=== PATIENT | male | born 1950 | race Caucasian/White ===

== ENCOUNTER 2017-12-09 05:50 | Day surgery (SDC) | payer MEDICARE, BC ==
[~2017-12-09] VITALS: Ht 185.4 cm; Wt 88.9 kg
[~2017-12-09 05:50] MED LIST: ASPI-496 PO; CHOL5000 PO; CYAN50003 PO; Cognium PO; DIME50TA25 PO; FLUT15.815 NAS; GLUC1CAP18 PO; METH500C3 PO; NAPR220C2 PO; OXYM15SP8 NAS; SAW450CA7 PO; TAMS-11 PO; UBID100C41 PO; VALA500T PO; VITA150T PO; Vitamin B INJ
[2017-12-09] MEDS ORDERED: LACTATED RINGERS 1,000 ML IV SCH (06:10)
[2017-12-09 06:27] VITALS: BP 146/94
[2017-12-09] MEDS ORDERED: EPINEPHRINE 1 MG/ML, 1ML ONE (06:55)
[2017-12-09] MEDS ORDERED: OXYMETAZOLINE NASAL SPRAY 0.05%, 15ML ONE (06:55)
[2017-12-09] MEDS ORDERED: MUPIROCIN OINT 2%, 22GM ONE (06:55)
[2017-12-09] MEDS ORDERED: LIDOCAINE 1%, 20ML ONE (06:55)
[2017-12-09] MEDS ORDERED: COCAINE TOPICAL SOLN 4%, 4ML ONE (06:55)
[2017-12-09] MEDS ORDERED: MIDAZOLAM 1 MG/ML, 2ML ONE (07:01)
[2017-12-09] MEDS ORDERED: FENTANYL PF 250 MCG/5ML ONE (07:01)
[2017-12-09] MEDS ORDERED: CEFAZOLIN 1,000 MG ONE (08:24)
[2017-12-09] MEDS ORDERED: NEOSTIGMINE 1 MG/ML, 10ML ONE (08:24)
[2017-12-09] MEDS ORDERED: ROCURONIUM 10 MG/ML,10ML ONE (08:24)
[2017-12-09] MEDS ORDERED: GLYCOPYRROLATE 0.2MG/1ML, 5ML ONE (08:24)
[2017-12-09] MEDS ORDERED: DEXAMETHASONE 4 MG/ML, 1ML ONE (08:24)
[2017-12-09] MEDS ORDERED: ONDANSETRON 2MG/ML, 2ML ONE (08:24)
[2017-12-09] MEDS ORDERED: PROPOFOL 10 MG/ML, 20ML ONE (08:24)
[2017-12-09] MEDS ORDERED: SUCCINYLCHOLINE 20 MG/ML, 10ML ONE (08:24)
[2017-12-09] MEDS ORDERED: hydrALAzine 20 MG/ML, 1ML IV PRN (08:30)
[2017-12-09] MEDS ORDERED: MEPERIDINE/PF 25MG/0.5ML IVPush PRN (08:30)
[2017-12-09] MEDS ORDERED: ACETAMINOPHEN 325 MG TABLET PO PRN (08:30)
[2017-12-09] MEDS ORDERED: LABETALOL 5MG/ML, 20ML IV PRN (08:30)
[2017-12-09] MEDS ORDERED: MIDAZOLAM 1 MG/ML, 2ML IV PRN (08:30)
[2017-12-09] MEDS ORDERED: DIAZEPAM 5 MG/ML, 2ML IVPush PRN (08:30)
[2017-12-09] MEDS ORDERED: HYDROcodone/APAP 7.5-325MG/15ML UDC PO PRN (08:30)
[2017-12-09] MEDS ORDERED: HYDROmorphone 1 MG/ML, 1ML IV PRN (08:30)
[2017-12-09] MEDS ORDERED: OXYcodone 5 MG/5 ML ORAL.SOL UDC PO PRN (08:30)
[2017-12-09] MEDS ORDERED: ONDANSETRON 2MG/ML, 2ML IVPush PRN (08:30)
[2017-12-09] MEDS ORDERED: METOPROLOL 1 MG/ML, 5ML IV PRN (08:30)
[2017-12-09] MEDS ORDERED: EPHEDRINE 50 MG/ML, 1ML IVPush PRN (08:30)
[2017-12-09] MEDS ORDERED: ALBUTEROL SULFATE 2.5 MG/3 ML NPPB PRN (08:30)
[2017-12-09] MEDS ORDERED: PROMETHAZINE 25 MG/ML, 1ML IV PRN (08:30)
[2017-12-09] MEDS ORDERED: OXYcodone 5 MG/5 ML ORAL.SOL UDC ONE (09:04)
[2017-12-09] MEDS ORDERED: ACETAMINOPHEN 650 MG/20.3 ML UDC ONE (09:04)
[2017-12-09] MEDS ORDERED: FENTANYL PF 100 MCG/2ML ONE ×2 (09:08→09:25)
[2017-12-09] MEDS: FENTANYL PF 100 MCG/2ML IV PRN ×4 (09:09→09:36)
== END 2017-12-09 13:15 ==
LOC: OUT 05:50
PROVIDERS: ATTEND Otolaryngology Facial Plastic Surgery
DX: J34.2 Deviated nasal septum (principal); J34.3 Hypertrophy of nasal turbinates; G43.909 Migraine, unspecified, not intractable, without status migrainosus
CPT/HCPCS: 30140; 30520; J0171; J0330; J0690; J1100; J2250; J2405; J2704; J2710; J3010; J3490; J7120